=== PATIENT | male | born 1970 | race Two or more races ===

== ENCOUNTER 2022-12-24 14:32 | Emergency (ER) | payer OTHER ==
[~2022-12-24] VITALS: Ht 172.7 cm; Wt 75.3 kg
[2022-12-24] MEDS ORDERED: BENZ-13 PO (16:16)
[2022-12-24 16:25] VITALS: BP 127/80
== END 2022-12-24 16:35 | disposition home or self-care (01) ==
LOC: ER 14:35
DX: J06.9 Acute upper respiratory infection, unspecified (principal); R05.9 Cough, unspecified; F17.200 Nicotine dependence, unspecified, uncomplicated
CPT/HCPCS: 71045-TC